=== PATIENT | male | born 1975 | race Caucasian/White ===

== ENCOUNTER 2019-05-28 21:51 | Emergency (ER) | payer SELFPAY ==
--- NOTE | 2019-05-28 21:53 | ER Report ---
History and Physical Time Seen By MD: 21:49 HPI/ROS CHIEF COMPLAINT: Residential clearance HISTORY OF PRESENT ILLNESS: 43-year-old male brought in by police for long term clearance. Patient appears grossly on-call intoxicated. He voices no complaints. He voices no injuries. Patient denies past medical history REVIEW OF SYSTEMS: Respiratory: No cough, no dyspnea. Cardiovascular: No chest pain, no palpitations. Gastrointestinal: No vomiting, no abdominal pain. Musculoskeletal: No back pain. Reviewed Nurses Notes: Yes Old Medical Records Reviewed: Yes Constitutional Vital Sign - Last 24 Hours 05/28/19 21:54 Temp 97.7 Pulse 110 Resp 18 B/P (MAP) 166/110 Pulse Ox 89 O2 Delivery Room Air Physical Exam General Appearance: The patient is alert, has no immediate need for airway protection and no current signs of toxicity. Vital signs stable, afebrile, pulse ox normal, palpation of the head and neck reveal no tenderness or trauma HEENT: Pupils equal and round no injection. TMs normal, oropharynx without dental trauma Respiratory: Chest is non tender, lungs are clear to auscultation. No chest wa ll tenderness Cardiac: regular rate and rhythm Gastrointestinal: Abdomen is soft and non tender, no masses, bowel sounds normal. Musculoskeletal: Neck: Neck is supple and non tender. Extremities have full range of motion and are non tender. Skin: No rashes or lesions. DIFFERENTIAL DIAGNOSIS: After history and physical exam differential diagnosis was considered for long term clearance, alcohol intoxication, polysubstance abuse. Medical Decision Making ED Course/Re-evaluation ED Course Patient was admitted to an examination room. H&P was done. The differential diagnoses was considered. On clinical examination. Patient voices no complaints. On clinical examination. He has no findings. Patient denies significant past medical history. Patient's medically cleared for long term admission. Decision to Disposition Date: May 28, 2019 Decision to Disposition Time: 21:54 Depart Departure Latest Vital Signs Vital Signs Date Time Temp Pulse Resp B/P (MAP) Pulse Ox O2 Delivery O2 Flow Rate FiO2 05/28/19 21:54 97.7 110 18 166/110 89 Room Air Impression: Primary Impression: Medical clearance for incarceration Additional Impression: Alcohol intoxication Condition: Improved Disposition: [facility] TO CUSTODIAL/CORRECTIONAL F Patient Instructions: Alcohol Intoxication (ED) Additional Instructions: Medical cleared for long term admission Problem Qualifiers Additional Impression: Alcohol intoxication Complication of substance-induced condition: uncomplicated Qualified Codes: F10.920 - Alcohol use, unspecified with intoxication, uncomplicated MORTEZA ROBLERO DO May 28, 2019 21:53
[2019-05-28 21:54] VITALS: BP 166/110
== END 2019-05-28 22:03 ==
LOC: ER 21:59
DX: F10.920 Alcohol use, unspecified with intoxication, uncomplicated (principal)
CPT/HCPCS: 99281